=== PATIENT | male | born 1950 | race Caucasian/White ===

== ENCOUNTER 2025-02-21 11:12 | Outpatient (CLI) | payer OTHER ==
[~2025-02-21 11:12] MED LIST: FAMO40TA59 PO; NO HOME MEDS; barium sulfate 340gm for oral suspension 1 BOTTLE SUSP.RECON PO ONE
--- NOTE | 2025-02-21 17:01 | RADIOLOGY REPORT ---
Esophagram study: HISTORY: Dysphasia. With the patient in both upright and prone positions both thin and thick barium liquid meals were administered under direct fluoroscopic evaluation. There is unremarkable esophageal distensibility and contractility. There is a reducible axial hiatal hernia which is small. There is no significant gastroesophageal reflux. Gastric mucosal pattern and proximal small intestinal mucosal pattern appear unremarkable. Total fluoroscopy time was 1.0 minutes with dose of 30.65 mGy. IMPRESSION: Small reducible axial hiatal hernia with no significant gastroesophageal reflux.
== END 2025-02-21 23:59 | disposition home or self-care (01) ==
LOC: RAD 11:12
PROVIDERS: ATTEND Nurse Practitioner
DX: Z01.89 Encounter for other specified special examinations (principal); K44.9 Diaphragmatic hernia without obstruction or gangrene
CPT/HCPCS: 74220